=== PATIENT | female | born 1975 | race Caucasian/White ===

== ENCOUNTER 2018-04-01 21:14 | Emergency (ER) | payer MEDICARE, MEDICAID ==
[~2018-04-01] VITALS: Ht 160 cm; Wt 103.8 kg
[~2018-04-01 21:14] MED LIST: ATOR20TA66 PO; HYDR-3972 PO; LEVO75TA PO
[2018-04-01] MEDS ORDERED: ibuprofen tablet 400 MG TABLET PO ONE (21:50)
[2018-04-01] MEDS ORDERED: bacitracin 15gm ointment TP ONE (21:50)
[2018-04-01] MEDS ORDERED: amoxicillin 250mg capsule PO ONE (21:50)
[2018-04-01] MEDS ORDERED: AMOX500C2 PO (21:55)
[2018-04-01] MEDS ORDERED: rabies immune globulin/PF 150 unit/ml inj IMVAC STA (22:06)
[2018-04-01] MEDS ORDERED: rabies vaccine (PCEC)/PF 2.5 unit kit IMVAC ONE (22:10)
[2018-04-01] MEDS ORDERED: AMOX-419 PO (22:12)
[2018-04-01 22:30] VITALS: BP 118/88
[2018-04-01] MEDS ORDERED: HYDR-569 PO (23:11)
== END 2018-04-01 23:48 | disposition home or self-care (01) ==
LOC: ER 21:14
DX: S91.011A Laceration without foreign body, right ankle, initial encounter (principal); F12.90 Cannabis use, unspecified, uncomplicated; Z90.710 Acquired absence of both cervix and uterus; W55.03XA Scratched by cat, initial encounter; Y93.89 Activity, other specified; Y92.89 Other specified places as the place of occurrence of the external cause; Y99.8 Other external cause status
CPT/HCPCS: 73590; 90375; 90471; 90675; 93971; 96372; 99284

== ENCOUNTER 2018-11-12 06:05 | Day surgery (SDC) | payer MEDICARE, MEDICAID ==
[2018-11-07 14:22] LABS: CLARITY,URINE CLEAR (Clear); COLOR,URINE STRAW (Yellow); GLUCOSE, URINE NEGATIVE (Neg); KETONES,URINE NEGATIVE (Neg); LEUKOCYTE ESTERASE ,URINE NEGATIVE (Neg); NITRITES, URINE NEGATIVE (Neg); OCCULT BLOOD,URINE NEGATIVE (Neg); PH,URINE 5.5 (4.8-8.0); PROTEIN,URINE NEGATIVE (Neg); UROBILINOGEN,URINE 0.2 E.U/dL (0.2-1.0)
[2018-11-07 14:24] LABS: BASOPHILS # (AUTO) 0.1 X10'3 (0-0.2); BASOPHILS % (AUTO) 0.6 % (0-1); EOSINOPHILS # (AUTO) 0.4 X10'3 (0-0.9); EOSINOPHILS % (AUTO) 5.1 % (0-6); LYMPHOCYTES # (AUTO) 2.2 X10'3 (1.1-4.8); LYMPHOCYTES % (AUTO) 25.1 % (21-51); MEAN CORPUSCULAR HEMOGLOBIN 28.5 PG (27.0-31.0); MEAN CORPUSCULAR HGB CONC 33.5 % (33.0-36.5); MEAN CORPUSCULAR VOLUME 84.9 FL (78-98); MEAN PLATELET VOLUME 6.7 FL (7.4-10.4); MONOCYTES # (AUTO) 0.4 X10'3 (0-0.9); NEUTROPHILS # (AUTO) 5.6 X10'3 (1.8-7.7); NEUTROPHILS % (AUTO) 64.2 % (42-75); PRE OP HEMATOCRIT 35.7 % (35.0-45.0); PRE OP PLATELET COUNT 355 X10'3 (140-440); RED CELL DISTRIBUTION WIDTH 13.8 % (11.5-14.5)
[2018-11-07 14:34] LABS: UA COLLECTION TYPE CLN CATCH MIDSTREAM
[2018-11-07 14:36] LABS: ALBUMIN 3.5 G/DL (3.4-5.0); ALBUMIN/GLOBULIN RATIO 0.8 (1.1-1.5); ALKALINE PHOSPHATASE 83 IU/L (46-116); BLOOD UREA NITROGEN 23 MG/DL (7-18); BUN/CREATININE RATIO 30.3 (6.6-38.0); CALCIUM 8.7 MG/DL (8.5-10.1); CHLORIDE 107 MMOL/L (99-107); CREATININE 0.76 MG/DL (0.40-0.90); PRE OP ALT 28 U/L (30-65); PRE OP ANION GAP 9 (8-16); PRE OP AST 16 U/L (10-37); PRE OP BILIRUB, TOTAL 0.2 MG/DL (0.0-1.0); PRE OP GLUCOSE 93 MG/DL (70-104); PRE OP POTASSIUM 3.9 MMOL/L (3.4-5.1); PRE OP SODIUM 142 MMOL/L (135-145); TOTAL CARBON DIOXIDE 26.3 MMOL/L (24-32); TOTAL PROTEIN 7.8 G/DL (6.4-8.2); eGFR 83 ML/MIN
[2018-11-12] VITALS (8 sets, daily range): BP systolic 108–134; BP diastolic 60–70
[~2018-11-12] VITALS: Ht 160 cm; Wt 104.3 kg
[~2018-11-12 06:05] MED LIST changes: +ACET-2119 PO; -ATOR20TA66 PO; +CALC-1051 PO; +ESTR2TAB PO; -HYDR-3972 PO; +IBUP-1984 PO; +cefazolin/dext.iso 2gm/100 ML IV ONE; +famotidine 20mg tablet PO ONE; +ringers solution, lacted 1,000 ML IV SCH
[2018-11-12] MEDS ORDERED: BUPIVAcaine/PF 2.5mg/ml (0.25%) 10ml vial ONE (06:59)
[2018-11-12] MEDS ORDERED: fentaNYL/PF 50MCG/1 ML 2ML syringe ONE (07:58)
[2018-11-12] MEDS ORDERED: midazolam 2 mg/2 ml injection ONE (07:58)
[2018-11-12] MEDS ORDERED: propofol inj 20 ML IV ONE (07:58)
[2018-11-12] MEDS ORDERED: ringers solution, lacted 1,000 ML IV SCH (08:08)
[2018-11-12] MEDS ORDERED: ondansetron/PF 4mg/2ml inj IV PRN (08:10)
[2018-11-12] MEDS ORDERED: proCHLORperazine 10 MG/2 ml inj IV PRN (08:10)
[2018-11-12] MEDS ORDERED: HYDROmorphone inj. 0.5 MG/0.5 ML DISP.SYRIN IV PRN ×2 (08:10)
[2018-11-12] MEDS ORDERED: meperidine/PF 25mg/ml syringe IV PRN ×3 (08:10)
[2018-11-12] MEDS ORDERED: sevoflurane 250ml liquid IH ONE (08:26)
--- NOTE | 2018-11-12 09:30 | NUR ---
Received from OR via bed, accompanied by Anesthesiologist. Report received. Initial physical assessment done and recorded.
--- NOTE | 2018-11-12 10:30 | NUR ---
Discharge criteria met, discharge instructions given, demonstrates verbal understanding. Discharged home in good condition. No complains of pain during post op period, no pain meds given no complaints
== END 2018-11-12 10:30 | disposition home or self-care (01) ==
LOC: PAS 06:05
PROVIDERS: ATTEND Surgery
DX: D17.1 Benign lipomatous neoplasm of skin and subcutaneous tissue of trunk (principal); E66.01 Morbid (severe) obesity due to excess calories; J45.998 Other asthma; M19.90 Unspecified osteoarthritis, unspecified site; E03.9 Hypothyroidism, unspecified; F32.9 Major depressive disorder, single episode, unspecified; F41.8 Other specified anxiety disorders; Z87.891 Personal history of nicotine dependence; Z90.710 Acquired absence of both cervix and uterus; Z90.49 Acquired absence of other specified parts of digestive tract; Z88.5 Allergy status to narcotic agent; Z91.048 Other nonmedicinal substance allergy status; Z79.891 Long term (current) use of opiate analgesic; Z79.1 Long term (current) use of non-steroidal anti-inflammatories (NSAID); Z68.41 Body mass index [BMI] 40.0-44.9, adult; Z87.09 Personal history of other diseases of the respiratory system; Z87.442 Personal history of urinary calculi; Z86.14 Personal history of Methicillin resistant Staphylococcus aureus infection; Z87.39 Personal history of other diseases of the musculoskeletal system and connective tissue; Z88.8 Allergy status to other drugs, medicaments and biological substances; Z98.890 Other specified postprocedural states; Z79.899 Other long term (current) drug therapy; Z83.6 Family history of other diseases of the respiratory system; Z83.3 Family history of diabetes mellitus
CPT/HCPCS: 21930; 21931; 36415; 80053; 81003; 82948; 85025; 93005; A6257; A6449; J0690; J2250; J2704; J3010; J3490; A7000; J7120

== ENCOUNTER 2022-06-05 07:24 | Day surgery (SDC) | payer MEDICARE, MEDICAID ==
[~2022-06-05] VITALS: Ht 160 cm; Wt 132.7 kg
[~2022-06-05 07:24] MED LIST changes: -ESTR2TAB PO; +ESTR2TAB50 PO; -cefazolin/dext.iso 2gm/100 ML IV ONE; -famotidine 20mg tablet PO ONE; -ringers solution, lacted 1,000 ML IV SCH
[2022-06-05 07:39] VITALS: BP 126/67
[2022-06-05] MEDS ORDERED: GABA300C PO (07:41)
[2022-06-05] MEDS ORDERED: BUS15T PO (07:43)
[2022-06-05] MEDS ORDERED: HYDR-3686 PO (07:44)
[2022-06-05] MEDS ORDERED: HYDR-3965 PO (07:45)
[2022-06-05] MEDS ORDERED: TRAZ-251 PO (07:45)
[2022-06-05] MEDS ORDERED: CYCL-1 PO (07:46)
[2022-06-05] MEDS ORDERED: fentaNYL/PF 50MCG/1 ML 2ML syringe ONE (08:09)
[2022-06-05] MEDS ORDERED: MIDAZolam 1 MG/ML 5ML VIAL ONE (08:09)
[2022-06-05] MEDS ORDERED: LEVO150T8 PO (08:33)
[2022-06-05 10:12] VITALS: BP 115/66
[2022-06-05 10:22] VITALS: BP 115/62
[2022-06-05 10:31] VITALS: BP 104/70
[2022-06-05 10:41] VITALS: BP 107/66
[2022-06-05 10:51] VITALS: BP 118/72
== END 2022-06-05 10:56 | disposition home or self-care (01) ==
LOC: GI LAB 07:24
PROVIDERS: ATTEND Internal Medicine Gastroenterology
DX: K92.1 Melena (principal); K63.5 Polyp of colon; K64.8 Other hemorrhoids; K62.1 Rectal polyp; K59.00 Constipation, unspecified; Z83.71 Family history of colonic polyps; Z98.890 Other specified postprocedural states; Z79.899 Other long term (current) drug therapy
CPT/HCPCS: 45385; C1773; G0500; J2250; J3010; J7030; Z7512; 88305; 99152; A4620

== ENCOUNTER 2025-02-23 06:48 | Day surgery (SDC) | payer MEDICARE, MEDICAID ==
[2025-02-23] VITALS (10 sets, daily range): BP systolic 111–141; BP diastolic 58–88; PULSE 58–76; RESP 10–16; TEMP 98.2; O2SAT 96–98
[~2025-02-23] VITALS: Ht 160 cm; Wt 136.8 kg
[~2025-02-23 06:48] MED LIST changes: +BUS15T PO; -CALC-1051 PO; +CYCL-1 PO; -ESTR2TAB50 PO; +GABA300C PO; +HYDR-3686 PO; +HYDR-3965 PO; +LEVO150T8 PO; -LEVO75TA PO; +TRAZ-251 PO
--- NOTE | 2025-02-23 07:21 | ELECTROCARDIOGRAPH REPORT ---
[facility] Test Date: 2025-02-23 Test Time: 07:18:56 Pat Name: KIM BA Department: [facility] Patient ID: [facility]-[id number] Room: Gender: F Loan Coordinator: RONALD : 1975 Requested By: SHAWN RODRIGUEZ Order Number: [id number] Reading MD: Dr. SHINE Gonzales Measurements Intervals [place] Rate: 68 P: 67 MO: 173 QRS: 80 QRSD: 91 T: 54 QT: 385 QTc: 410 Interpretive Statements Sinus rhythm Electronically Signed On 02-23-2025 13:29:[address] SHINE Gonzales Please click the below link to view image of tracing.
[2025-02-23] MEDS ORDERED: BUPR-559 PO (07:24)
[2025-02-23] MEDS ORDERED: LEVO175T37 PO (07:24)
[2025-02-23] MEDS ORDERED: ASPI-611 PO (07:24)
[2025-02-23] MEDS ORDERED: BUSP30TA3 PO (07:24)
[2025-02-23] MEDS ORDERED: NITR0.4T48 (07:24)
[2025-02-23] MEDS ORDERED: PROP10TA10 (07:24)
[2025-02-23] MEDS ORDERED: TEST200V33 IM (07:24)
[2025-02-23 08:26] LABS: BASOPHILS # (AUTO) 0.1 X10'3 (0-0.2); BASOPHILS % (AUTO) 1.2 % (0-1); EOSINOPHILS # (AUTO) 0.2 X10'3 (0-0.9); EOSINOPHILS % (AUTO) 2.9 % (0-6); HEMOGLOBIN 14.7 g/dl (12.0-16.0); LYMPHOCYTES # (AUTO) 1.5 X10'3 (1.1-4.8); LYMPHOCYTES % (AUTO) 23.3 % (21-51); MEAN CORPUSCULAR HEMOGLOBIN 27.2 PG (27.0-31.0); MEAN CORPUSCULAR HGB CONC 33.3 g/dL (33.0-36.5); MEAN CORPUSCULAR VOLUME 81.5 FL (78-98); MEAN PLATELET VOLUME 6.8 FL (7.4-10.4); MONOCYTES # (AUTO) 0.4 X10'3 (0-0.9); MONOCYTES % (AUTO) 6.3 % (2-12); NEUTROPHILS # (AUTO) 4.2 X10'3 (1.8-7.7); NEUTROPHILS % (AUTO) 66.3 % (42-75); PLATELET COUNT 329 X10'3 (140-440); RED BLOOD COUNT 5.41 X10'6 (4.20-5.60); RED CELL DISTRIBUTION WIDTH 13.9 % (11.5-14.5); WHITE BLOOD COUNT 6.3 X10'3 (4.5-11.0)
[2025-02-23] MEDS: normal saline 1,000 ML IV SCH (08:44)
[2025-02-23] MEDS: diphenhydrAMINE 25mg capsule PO PRN (08:44)
[2025-02-23] MEDS: sodium bicarbonate 1meq/ml syr 150 ML in dextrose 5%-water 1,000 ML IV ONE (08:45)
[2025-02-23] MEDS ORDERED: fentaNYL/PF 50MCG/1 ML 2ML syringe ONE (08:46)
[2025-02-23] MEDS ORDERED: midazolam 1 mg/ML 2ml injection ONE ×3 (08:46→09:44)
[2025-02-23] MEDS ORDERED: verapamil 2.5 mg/ml inj IV ONE (08:46)
[2025-02-23] MEDS ORDERED: LIDOcaine 1% (10mg/ml) 2ml vial ONE (08:46)
[2025-02-23] MEDS ORDERED: heparin 1,000unit/ml 10ml vial 10 ML ONE (08:47)
[2025-02-23] MEDS ORDERED: iohexol 350 MG/ML 50ML vial IV ONE (08:47)
[2025-02-23] MEDS ORDERED: iohexol 350MG/ML 100ml bottle IV ONE (08:47)
[2025-02-23 08:53] LABS: ALBUMIN 3.6 G/DL (3.4-5.0); ANION GAP 6 (8-16); BLOOD UREA NITROGEN 8 MG/DL (7-18); BUN/CREATININE RATIO 8.2 (10.0-20.0); CALCIUM 8.5 MG/DL (8.5-10.1); CHLORIDE 106 MMOL/L (99-107); CREATININE 0.98 MG/DL (0.40-0.90); GLUCOSE 83 MG/DL (70-104); POTASSIUM 3.8 MMOL/L (3.5-5.1); SODIUM 139 MMOL/L (135-145); TOTAL CARBON DIOXIDE 27.4 MMOL/L (24-32); eCRCL 57 ML/MIN; eGFR 60 ML/MIN
[2025-02-23 08:56] LABS: PROTHROMBIN TIME 10.6 SECONDS (9.0-12.0)
[2025-02-23] MEDS ORDERED: nitroGLYCERIN 500mcg/5mL D5W 5 ML IV ONE (09:05)
[2025-02-23] MEDS ORDERED: HYDROmorphone 1 mg/ml syringe ONE (09:32)
[2025-02-23] MEDS ORDERED: HYDROcodone/acetaminophen 5mg/325mg tablet PO PRN (10:30)
[2025-02-23] MEDS ORDERED: HYDROcodone/acetaminophen 10/325mg tab PO PRN (10:30)
[2025-02-23] MEDS ORDERED: ondansetron/PF 4mg/2ml inj IV PRN (10:30)
[2025-02-23] MEDS ORDERED: proCHLORperazine 10 MG/2 ml inj IV PRN (10:30)
--- NOTE | 2025-02-23 11:11 | CARDIOLOGY REPORT ---
DATE OF SERVICE: 02/23/2025 DICTATING PHYSICIAN: SHAWN RODRIGUEZ DO CARDIAC CATHETERIZATION REPORT REFERRING PHYSICIAN: Anuj Green MD. CLINICAL HISTORY: This 49-year-old woman has occasional chest discomfort, somewhat suggestive of angina. A pharmacologic stress test has been equivocal for ischemia, but it was not entirely normal. PROCEDURES PERFORMED: * Left heart catheterization. * Left ventriculography. * Selective coronary arteriography. * 30-minutes conscious sedation supervision. DESCRIPTION OF PROCEDURE: The patient was sedated with fentanyl and Versed. She was then prepared and draped in the usual manner. The right radial area was infiltrated with 1% lidocaine. Using a micropuncture set and a Seldinger technique, a 6-Tai[place]ese sheath was placed in the common femoral artery, 200 mcg of nitroglycerin and 2.5 mg of verapamil were directly injected into the radial artery. The 5000 units of heparin were given into her peripheral IV. Left heart catheterization and left ventriculography were performed using a 6-Taiwanese pigtail catheter. Coronary arteriography was performed using a 6-Tai[place]ese Kimny catheter. The arterial sheath was removed and Vasc band was applied. RESULTS: HEMODYNAMIC DATA: The left ventricular end diastolic pressure was 13 mmHg. There was no gradient across the aortic valve. LEFT VENTRICULOGRAM: The left ventriculogram was suboptimal. It was almost entirely composed of ventricular tachycardia; however, systolic function appeared to be very good, i.e., at least 60% or greater. CORONARY ARTERIOGRAPHY: The coronary arteriograms are technically satisfactory. The patient had a right dominant system. RIGHT CORONARY ARTERY: The right coronary artery was a large main stem vessel. There was a medium-sized posterior descending branch, a small to medium-sized first posterolateral, and a small caliber second posterolateral. There were no obstructive lesions in the right coronary artery. LEFT MAIN CORONARY ARTERY: The left main was a large unobstructed vessel trifurcating into left anterior descending intermediate and circumflex coronary artery. LEFT ANTERIOR DESCENDING CORONARY ARTERY: The LAD was a medium to large transapical vessel. There was a large very proximal first diagonal and a medium-sized second diagonal taking its origin from the mid LAD. There were no obstructive lesions in the left anterior descending coronary artery. INTERMEDIATE ARTERY: The intermediate was a small to medium-sized bifurcated vessel that was unobstructed. CIRCUMFLEX CORONARY ARTERY: The circumflex was a large main stem vessel. There was a very small, very proximal first obtuse marginal. The remainder of the vessel was composed of a very large posterolateral branch with 4 sub-branches reaching to the posterolateral surface of the heart. There were no obstructive lesions in the circumflex coronary artery. CONCLUSIONS: * No evidence for obstructive coronary artery disease. * Although the left ventriculogram was suboptimal, the ejection fraction appears to be normal with an LVEF of at least 60%. RECOMMENDATIONS: Ongoing medical therapy. SHAWN RODRIGUEZ DO TID: [id number] RECEIPT: [id number] ANDRES/ANA CARSON
== END 2025-02-23 13:45 | disposition home or self-care (01) ==
LOC: SSTAY O 06:48
PROVIDERS: ATTEND Internal Medicine Cardiovascular Disease
DX: R07.89 Other chest pain (principal); G47.30 Sleep apnea, unspecified; K21.9 Gastro-esophageal reflux disease without esophagitis; I10 Essential (primary) hypertension; E78.5 Hyperlipidemia, unspecified; Z79.899 Other long term (current) drug therapy; Z87.891 Personal history of nicotine dependence; Z98.890 Other specified postprocedural states
CPT/HCPCS: 36415; 80048; 83735; 85025; 85610; 93005; 93458; 99152; 99153; C1894; J1171; J1644; J2003; J2250; J3010; J3490; J7030; J7070; Q0163; Q9967; Z7610